=== PATIENT | female | born 1995 | race American Indian/Alaskan Native ===

== ENCOUNTER 2025-03-25 12:02 | Emergency (ER) | payer BC, SELFPAY ==
[2025-03-25 12:03] VITALS: BP 124/84; PULSE 78; RESP 18; TEMP 36.8; O2SAT 100; BMI 21.2
[2025-03-25 12:24] VITALS: PULSE 87; O2SAT 98
--- NOTE | 2025-03-25 12:29 | EKG_ITS ---
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
--- NOTE | 2025-03-25 12:32 | PD.EDRME ---
Rapid Medical Screening Exam RME Arrival date/time: 03/25/25 12:02 29-year-old female presents via EMS for concerns for nausea vomiting and dizziness patient reports no abdominal pain no chest pain no shortness of breath Chief Complaint: Dizziness Vital signs: Vital Signs Temperature 98.2 F 03/25/25 12:03 Pulse Rate 78 03/25/25 12:03 Respiratory Rate 18 03/25/25 12:03 Blood Pressure 124/84 03/25/25 12:03 Pulse Oximetry (%) 100 03/25/25 12:03 Oxygen Delivery Method Room Air 03/25/25 12:03
[2025-03-25] MEDS: ONDANSETRON ODT 4 MG TABRAP PO (12:34)
[2025-03-25 12:55] LABS: Basophils # (Auto) 0.1 Thou/mm3 (0.0-0.2); Basophils % (Auto) 1 % (0-2.5); Eosinophils % (Auto) 0 % (0-10); Hematocrit 37.4 % (36.0-46.0); Hemoglobin 12.4 g/dL (12.0-16.0); Immature Granulocytes % (Auto) 0 % (0-0); Immature Granulocytes Auto 0.02 Thou/mm3 (0.00-0.00); Lymphocytes % (Auto) 14 % (10-50); Mean Corpuscular HGB Conc 33.2 g/dl (31.0-37.0); Mean Corpuscular Hemoglobin 27.5 pg (25.0-35.0); Mean Corpuscular Volume 83 fL (80-100); Monocytes # (Auto) 0.4 Thou/mm3 (0.0-0.8); Monocytes % (Auto) 5 % (0-12); Neutrophils # (Auto) 5.7 Thou/mm3 (1.8-7.7); Neutrophils % (Auto) 79 % (37-80); Nucleated Red Blood Cell % 0 /100 WBC (0); Platelet Count 253 Thou/mm3 (140-440); RDW Standard Deviation 41.1 fL (36.4-46.3); Red Blood Count 4.51 Miln/mm3 (4.00-5.20); White Blood Count 7.2 Thou/mm3 (3.6-11.0)
[2025-03-25 12:57] LABS: Collection Type, Urine Clean Catch
[2025-03-25 13:10] LABS: HCG Qualitative,Urine Negative
[2025-03-25 13:13] LABS: Bacteria,Urine 3+; Bilirubin,Urine Negative (Negative); Blood,Urine Negative (Negative); Clarity,Urine Clear (Clear/Hazy); Color,Urine Lt-Yellow (Lt Yel-Yel); Glucose, Urine Negative (Negative); Ketones,Urine 1+ (Negative); Leukocyte Esterase,Urine Negative (Negative); Nitrite,Urine Negative (Negative); PH,Urine 7.5 (5.0-7.0); Protein,Urine Negative (Neg - Trace); RBC,Urine 2 /hpf (0-3); Specific Gravity,Urine 1.023 (1.001-1.035); Squamous Epithelial Cell,Urine 5 /hpf (0-5); Urobilinogen,Urine Negative mg/dL (0.0-1.0); WBC,Urine 2 /hpf (0-5)
[2025-03-25 13:16] LABS: Alanine Aminotransferase 7 U/L (10-49); Albumin/Globulin Ratio 1.7 (1.2-2.2); Alkaline Phosphatase 75 U/L (46-116); Anion Gap 8 (7-16); Aspartate Amino Transferase 19 U/L (0-34); BUN/Creatinine Ratio 13 Ratio (12-20); Bilirubin,Total 0.5 mg/dL (0.3-1.2); Blood Urea Nitrogen 8 mg/dL (9-23); Calcium 9.7 mg/dL (8.3-10.6); Calcium (Corrected) 9.7 mg/dL (8.5-10.1); Carbon Dioxide 23.7 mMol/L (20.0-31.0); Chloride 104 mMol/L (98-107); Creatinine (Component) 0.6 mg/dL (0.6-1.3); Estimated Creatinine Clearance 113.4 mL/min (>60); Glucose 90 mg/dL (74-106); Lipase 35 U/L (12-53); Osmolality,Calculated 270 (275-295); Sodium 136 mMol/L (136-145); Troponin I < 0.002 ng/mL (0.0-0.045); eGFR > 60 See Note
[2025-03-25 13:16] LABS: Culture Indicated,Urine Yes
--- NOTE | 2025-03-25 14:33 | PD.EDDIZZY ---
ED Dizzyness RME/HPI General Chief Complaint: Dizziness Stated Complaint: NAUSEA VOMMITING Time Seen by Provider: 03/25/25 14:03 Arrival date/time: 03/25/25 12:02 29-year-old female presents via EMS for concerns for nausea vomiting and dizziness patient reports no abdominal pain no chest pain no shortness of breath, patient reports dizziness episodes ongoing for the last few months Limitations: no limitations RME / HPI RME / HPI Narrative: 03/25/25 12:02 29-year-old female presents via EMS for concerns for nausea vomiting and dizziness patient reports no abdominal pain no chest pain no shortness of breath Related Data Previous Rx's ?Medication ?Instructions ?Recorded ondansetron 4 mg disintegrating 4 mg PO Q8H PRN nausea and 03/25/25 tablet vomiting #10 tabs Allergies Allergy/AdvReac Type Severity Reaction Status Date / Time No Known Allergies Allergy Verified 03/25/25 12:24 Review of Systems Review of Systems Systems Reviewed: All systems reviewed, normal except as documented Constitutional Constitutional: Reports system reviewed and no additional complaints, except as documented, Denies fever(s), Denies headache(s) and Denies weakness Eyes Eyes: Reports system reviewed and no additional complaints, except as documented and Denies blurry vision ENT Ears, Nose, Mouth, and Throat: Reports system reviewed and no additional complaints, except as documented, Denies headache(s), Denies nasal congestion, Denies nasal discharge and Reports vertigo Cardiovascular Cardiovascular: Reports system reviewed and no additional complaints, except as documented, Denies chest pain, Denies dyspnea and Denies lightheadedness Respiratory Respiratory: Reports system reviewed and no additional complaints, except as documented, Denies chest congestion, Denies cough and Denies dyspnea Gastrointestinal Gastrointestinal: Reports system reviewed and no additional complaints, except as documented, Denies abdominal pain, Reports nausea and Reports vomiting Musculoskeletal Musculoskeletal: Denies numbness and Denies tingling Integumentary/Breasts Skin/Breast: Reports system reviewed and no additional complaints, except as documented and Denies rash Neurologic Neurologic: Reports system reviewed and no additional complaints, except as documented, Reports as per HPI, Denies headache(s), Denies memory loss, Denies numbness, Denies tingling, Reports vertigo and Denies weakness Psychiatric Psychiatric: Denies memory loss Past Medical History Social History SMOKING STATUS: Never smoker ED Exam General Limitations: Present no limitations General appearance: Present alert and in no apparent distress Head Head exam: Present atraumatic, normocephalic and normal inspection Eye Eye exam: Present normal appearance, PERRL and EOMI; Absent conjunctival injection ENT ENT exam: Present normal exam, normal oropharynx and mucous membranes moist Neck Neck exam: Present normal inspection, full ROM and trachea midline Chest Chest inspection: Present normal inspection and symmetric chest wall rise Respiratory Respiratory exam: Present normal lung sounds bilaterally; Absent respiratory distress Cardiovascular Cardiovascular exam: Present regular rate, normal rhythm and normal heart sounds; Absent bradycardia, tachycardia or irregular rhythm Abdominal Exam Abdominal exam: Present soft and normal bowel sounds Extremities Exam Extremities exam: Present normal inspection and full ROM Back Exam Back exam: Present normal inspection and full ROM Neurological Exam Neurological exam: Present alert, oriented X3, CN II-XII intact, normal gait and reflexes normal; Absent motor sensory deficit Psychiatric Psychiatric exam: Present normal affect and normal mood Skin Skin exam: Present warm, dry, intact and normal color Course Quality Measures none Orders Category Date Time Status EKG (ED ONLY) *Do not use* NOW Care 03/25/25 12:29 Completed Consult to Neurology / Tele-Neurology Stat Cons 03/25/25 14:41 Active EKG (ED Only) Stat Exams 03/25/25 12:29 Draft CBC Stat Lab 03/25/25 12:38 Completed Comprehensive Metabolic Panel Stat Lab 03/25/25 12:38 Completed HCG Qualitative,Urine Stat Lab 03/25/25 12:40 Completed Lipase Stat Lab 03/25/25 12:38 Completed Troponin I Stat Lab 03/25/25 12:38 Completed UA, C/S IF [Urinalysis, C/S if Indicated] Stat Lab 03/25/25 12:40 Completed Urine Culture Stat Lab 03/25/25 12:40 Completed Ondansetron Odt [Zofran Odt] Med 03/25/25 12:29 Discontinued 4 mg PO X1 ONE Vital Signs Vital signs: Vital Signs Temperature 98.2 F 03/25/25 12:03 Pulse Rate 78 03/25/25 12:03 Respiratory Rate 18 03/25/25 12:03 Blood Pressure 124/84 03/25/25 12:03 Pulse Oximetry (%) 100 03/25/25 12:03 Oxygen Delivery Method Room Air 03/25/25 12:03 O2 saturation 100% room air within normal limits Procedures -ED EKG Interpretation #1: Date of EK03/25/25 Time of EK:31 Rate: 77 Interpretation: Interpreted by me EKG Impression: Normal sinus rhythm, No acute ST-T changes, No ectopy, No ischemic changes, Normal QRS, Normal intervals and Normal axis Dizziness MDM Narrative MDM Narrative:: 29-year-old female presents via EMS for concerns for nausea vomiting and dizziness patient reports no abdominal pain no chest pain no shortness of breath, patient reports dizziness episodes ongoing for the last few months On exam patient well-appearing patient does not appear ill or toxic in no acute distress Lab work obtained no acute emergent findings noted EKG obtained no acute emergent findings noted Consultation: I spoke with Dr Balderas neurologist states she will see the patient in her office At time of discharge patient is in no distress patient amenable to this plan Patient data External records reviewed:: [facility] previous records Clinical information provided by:: patient Social determinants that could affect healthcare access:: none Patient has the following chronic illnesses:: None How is presenting disease/condition affected by chronic disease/condition?: no chronic disease Evaluation data The following diagnostics were reviewed and interpreted by me:: lab results and EKG tracing(s) Lab and/or radiology exams considered but not ordered:: Labs and EKG obtained Interpretation Summary: Reviewed by me Medications / Prescriptions Medications or Prescriptions considered but not ordered:: Given Medication administrations:: Medication Administration History Discontinued Medications Ondansetron HCl (Ondansetron Odt 4 Mg Tabrap) 4 mg PO X1 ONE; Protocol Stop: 03/25/25 12:30 Last Admin: 03/25/25 12:34 Dose: 4 mg Documented By: CS Given Consultations Consultation(s) initiated? (list below): Yes Consultation #1 (Physician, Specialty, Details): Dr Balderas neurologist Diagnosis Dizziness Differential Diagnosis: adverse reaction to drug, benign paroxysmal positional vertigo, vertebral basilar insufficiency and acute vestibular neuronitis Most likely diagnosis given after review of the tests above:: Dizziness Admission Indicated Admission indicated?: not indicated Admission Request Was there a request for admission?: No Disposition Plan Disposition Plan: Discharge Discharge Attestation Discharge Attestation: The patient and all family members were given an opportunity to ask questions and understood the discharge instructions. Discharge instructions specifically effects, indications for sooner follow up or return to the emergency department, and the expected course of current diagnosis. Patient condition: Stable Discharge Plan Plan Patient Disposition: HOME (Self Care) Discharge Disposition comment: Stable Prescriptions/Referrals Prescriptions/Med Rec: New ondansetron 4 mg tablet,disintegrating 4 mg PO Q8H PRN (Reason: nausea and vomiting) Qty: 10 0RF Referrals: No Primary/Family,Physician [Primary Care Provider] - 03/26/25 Problem List Clinical Impression: Dizziness, Nausea & vomiting Patient/Caregiver Discharge Instructions Additional Instructions: Please follow-up with Dr Balderas as discussed for worsening symptoms return immediately Print Language: Lithuanian Stand Alone Forms: Maura Award Info., Work/School Release, Patient Portal Info Letter PA/PLASTICS ENGINEER Supervising Physician PA/PLASTICS ENGINEER Supervising Physician: Dr. triplett
== END 2025-03-25 14:35 | disposition home or self-care (01) ==
PROVIDERS: Nurse Practitioner Primary Care; Emergency Provider Emergency Medicine
DX: R42 Dizziness and giddiness (principal); R11.2 Nausea with vomiting, unspecified
CPT/HCPCS: 36415; 80053; 81001; 81025; 83690; 84484; 85025; 87086; 93005; 99283; Q0162

== ENCOUNTER → 2025-03-26 | Outpatient (CLI) | payer BC, SELFPAY ==
[2025-03-26 13:33] LABS: Glucose Estimated Average 108 mg/dL (80-131); Hemoglobin A1C 5.4 % Hgb (4.8-6.0)
[2025-03-26 13:50] LABS: Vitamin B12 359 pg/mL (211-911); Vitamin D 25 Hydroxy Total 7.4 ng/mL (7.3-40.2)
[2025-03-26 13:52] LABS: Free T4 (Free Thyroxine) 1.06 ng/dL (0.89-1.76)
[2025-04-06 07:26] LABS: ANA Screen, IFA POSITIVE (NEGATIVE)
== END | disposition home or self-care (01) ==
LOC: COPL 12:41
PROVIDERS: PCP Nurse Practitioner Family; Referring Provider Internal Medicine; Visit Provider Internal Medicine
DX: R42 Dizziness and giddiness (principal)
CPT/HCPCS: 36415; 82306; 82607; 83036; 84439; 84443; 86038

== ENCOUNTER → 2025-08-04 | Outpatient (CLI) | payer OTHER, SELFPAY ==
--- NOTE | 2025-08-04 14:57 | XR_ITS ---
Examination: Wrist, left 3 views Technique: Wrist AP, oblique, lateral 3 views Date and time of exam: August 04, 2025 1512 hours INDICATIONS: Left wrist injury beginning 5 days ago FINDINGS: No fracture. The distal ulna is dorsally positioned on the lateral view, clinical correlation advised IMPRESSION: No fracture The distal ulna is dorsally positioned on the lateral view, clinical correlation advised, if dorsal dislocation of the distal ulna is a clinical consideration recommend follow-up true lateral view the wrist
== END | disposition home or self-care (01) ==
LOC: CDIM 14:47
PROVIDERS: Referring Provider Nurse Practitioner Family; Visit Provider Nurse Practitioner Family
DX: S63.502A Unspecified sprain of left wrist, initial encounter (principal); X58.XXXA Exposure to other specified factors, initial encounter
CPT/HCPCS: 73110